=== PATIENT | male | born 1985 | race Caucasian/White ===

== ENCOUNTER 2020-03-10 10:47 | Outpatient (CLI) | payer OTHER | END 2020-03-10 23:59 | disposition home or self-care (01) | LOC: CFH 10:47 | PROVIDERS: ATTEND Physician Assistant Surgical | DX: S82.192A Other fracture of upper end of left tibia, initial encounter for closed fracture (principal); X58.XXXA Exposure to other specified factors, initial encounter; Y93.89 Activity, other specified; Y92.89 Other specified places as the place of occurrence of the external cause; Y99.8 Other external cause status ==

== ENCOUNTER 2020-03-14 09:21 | Day surgery (SDC) | payer OTHER ==
[~2020-03-14] VITALS: Ht 190.5 cm; Wt 84.6 kg
[2020-03-14 09:45] VITALS: BP 127/70
[2020-03-14] MEDS ORDERED: LACTATED RINGERS 1,000 ML IV SCH (09:47)
[2020-03-14] MEDS ORDERED: CHLORHEXIDINE 15 ML UDC MM STA (09:48)
[2020-03-14] MEDS ORDERED: NEOSPORIN OINT, 15GM ONE (10:06)
[2020-03-14] MEDS ORDERED: BUPIVACAINE/PF-EPI 0.5% 1:200K ONE (10:06)
[2020-03-14] MEDS ORDERED: FENTANYL PF 250 MCG/5ML ONE (10:54)
[2020-03-14] MEDS ORDERED: MIDAZOLAM 1 MG/ML, 2ML ONE (10:54)
[2020-03-14] MEDS ORDERED: ACETAMINOPHEN 325 MG TABLET PO PRN (12:30)
[2020-03-14] MEDS ORDERED: LORazepam 2 MG/ML, 1ML IVPush PRN (12:30)
[2020-03-14] MEDS ORDERED: PROMETHAZINE 12.5 MG SUPP PR PRN (12:30)
[2020-03-14] MEDS ORDERED: ONDANSETRON 2MG/ML, 2ML IV PRN (12:30)
[2020-03-14] MEDS ORDERED: ONDANSETRON ODT 8 MG PO PRN (12:30)
[2020-03-14] MEDS ORDERED: MEPERIDINE/PF 25MG/ML,1ML IVPush PRN (12:30)
[2020-03-14] MEDS ORDERED: OXYcodone 5 MG/5 ML ORAL.SOL UDC PO PRN (12:30)
[2020-03-14] MEDS ORDERED: HYDROmorphone 2 MG/ML, 1ML IVPush PRN (12:30)
[2020-03-14] MEDS ORDERED: PROMETHAZINE 25 MG/ML, 1ML IV PRN (12:30)
[2020-03-14] MEDS ORDERED: PROMETHAZINE 25 MG SUPP PR PRN (12:30)
[2020-03-14] MEDS ORDERED: FENTANYL PF 100 MCG/2ML ONE ×3 (12:57→14:08)
[2020-03-14] MEDS ORDERED: NEOSTIGMINE 1 MG/ML, 10ML ONE (13:02)
[2020-03-14] MEDS ORDERED: PROPOFOL 10 MG/ML, 20ML ONE (13:02)
[2020-03-14] MEDS ORDERED: GLYCOPYRROLATE 0.2MG/1ML, 5ML ONE (13:02)
[2020-03-14] MEDS ORDERED: ROCURONIUM 10MG/ML,5ML ONE (13:02)
[2020-03-14] MEDS ORDERED: DEXAMETHASONE 4 MG/ML, 1ML ONE (13:02)
[2020-03-14] MEDS ORDERED: ONDANSETRON 2MG/ML, 2ML ONE (13:02)
[2020-03-14] MEDS ORDERED: SUCCINYLCHOLINE 20 MG/ML, 10ML ONE (13:02)
[2020-03-14] MEDS ORDERED: CEFAZOLIN 1,000 MG ONE (13:02)
[2020-03-14] MEDS ORDERED: MEPERIDINE/PF 100 MG/ML ONE (13:03)
[2020-03-14] MEDS ORDERED: OXYcodone 5 MG/5 ML ORAL.SOL UDC ONE (13:49)
[2020-03-14] MEDS: FENTANYL PF 100 MCG/2ML IV PRN ×6 (13:55→14:35)
== END 2020-03-14 16:00 | disposition home or self-care (01) ==
LOC: OR 09:21
PROVIDERS: ATTEND Orthopaedic Surgery
DX: S82.142A Displaced bicondylar fracture of left tibia, initial encounter for closed fracture (principal); S82.112A Displaced fracture of left tibial spine, initial encounter for closed fracture; Z79.891 Long term (current) use of opiate analgesic; Z91.030 Bee allergy status; V86.56XA Driver of dirt bike or motor/cross bike injured in nontraffic accident, initial encounter; Y93.55 Activity, bike riding; Y92.89 Other specified places as the place of occurrence of the external cause; Y99.8 Other external cause status
CPT/HCPCS: 27535; 27540; 64447; 73560; C1713; C1762; J0690; J1100; J2175; J2250; J2405; J2704; J2710; J3010; J7120; 76000; J0330